=== PATIENT | female | born 1995 ===

== ENCOUNTER 2022-04-27 11:26 | Emergency (ER) | payer OTHER ==
[~2022-04-27] VITALS: Ht 162.6 cm; Wt 90.7 kg
[2022-04-27] MEDS ORDERED: TETANUS-DIPTH-ACEL PERTUSSIS 0.5ML SYR Tdap IM ONE (12:45)
[2022-04-27] MEDS ORDERED: KETOROLAC TROMETH 60MG/2ML VIAL IM ONE (12:45)
[2022-04-27] MEDS ORDERED: CEPH-509 PO (13:18)
[2022-04-27] MEDS ORDERED: IBUP800T27 PO (13:18)
[2022-04-27 14:04] VITALS: BP 122/70
== END 2022-04-27 14:14 | disposition home or self-care (01) ==
LOC: ER 11:26
DX: S81.011A Laceration without foreign body, right knee, initial encounter (principal); S83.91XA Sprain of unspecified site of right knee, initial encounter; Z79.1 Long term (current) use of non-steroidal anti-inflammatories (NSAID); Z79.899 Other long term (current) drug therapy; W01.0XXA Fall on same level from slipping, tripping and stumbling without subsequent striking against object, initial encounter; Y93.89 Activity, other specified; Y92.89 Other specified places as the place of occurrence of the external cause; Y99.8 Other external cause status
CPT/HCPCS: 12001; 29505; 73562; 90471; 90715; 96372; 99284; J1885; J2001